=== PATIENT | male | born 1950 | race Caucasian/White ===

== ENCOUNTER 2019-08-06 03:55 | Emergency (ER) | payer OTHER ==
[~2019-08-06] VITALS: Ht 170.2 cm; Wt 81.6 kg
[~2019-08-06 03:55] MED LIST: FINA5TAB3 PO; GABA-531 PO; PROP10TA10 PO
--- NOTE | 2019-08-06 04:10 | NUR ---
Patient to ER bed 8 to gown for evaluation. Side rails up.
[2019-08-06 04:14] VITALS: BP_SYST 133
--- NOTE | 2019-08-06 04:15 | NUR ---
Pt C/O flank pain and nausea x 3 days worsening today. Pt has hx of kidney stones and states "the pain feels the same". Pt reports difficulty urinating at this time. Denies any chest pain, SOB, or any other symptoms at this time. Will continue to monitor.
[2019-08-06] MEDS ORDERED: LIP40 PO (04:22)
[2019-08-06] MEDS ORDERED: SPIR25TA PO (04:23)
[2019-08-06] MEDS ORDERED: MELO15TA13 PO (04:24)
[2019-08-06] MEDS ORDERED: GABA-531 PO (04:24)
[2019-08-06] MEDS ORDERED: HYDR25TA4 PO (04:25)
[2019-08-06] MEDS ORDERED: METO-442 PO (04:26)
--- NOTE | 2019-08-06 04:30 | NUR ---
ER Dr. Francis at bedside examining patient.
[2019-08-06] MEDS ORDERED: BUPR-120 PO (04:31)
[2019-08-06] MEDS ORDERED: AMLO5TAB4 PO (04:32)
[2019-08-06] MEDS ORDERED: XALEYE OP (04:33)
[2019-08-06] MEDS ORDERED: MORPHINE 4 MG/ML INJ. SYRINGE IVP ONE (04:45)
[2019-08-06] MEDS ORDERED: ONDANSETRON HCL 4 MG/2 ML VIAL IVP ONE (04:45)
[2019-08-06] MEDS ORDERED: NACL 0.9% 1,000 ML IV ONE (04:45)
[2019-08-06] MEDS ORDERED: CHOL100038 PO (04:47)
[2019-08-06] MEDS ORDERED: MULT-1117 (04:47)
[2019-08-06] MEDS ORDERED: FOLI-43 PO (04:49)
[2019-08-06] MEDS ORDERED: CYAN100010 PO (04:50)
[2019-08-06 05:11] LABS: BASOPHILS % (AUTO) 0.6 % (0.0-2.0); EOSINOPHILS # (AUTO) 0.1 K/uL (0.0-0.4); EOSINOPHILS % (AUTO) 1.6 % (0.0-4.0); HEMATOCRIT 41.8 % (36-54); HEMOGLOBIN 14.2 g/dL (14.0-18.0); LYMPHOCYTES # (AUTO) 0.8 K/uL (1.0-5.5); LYMPHOCYTES % (AUTO) 9.6 % (20.5-51.5); MEAN CORPUSCULAR HEMOGLOBIN 34 pg (27-31); MEAN CORPUSCULAR HGB CONC 34 % (32-36); MEAN CORPUSCULAR VOLUME 100 fL (79.0-98.0); MONOCYTES # (AUTO) 1.2 K/uL (0.0-1.0); MONOCYTES % (AUTO) 14.6 % (1.7-9.3); NEUTROPHILS # (AUTO) 5.8 K/uL (1.8-7.7); NEUTROPHILS % (AUTO) 73.6 % (40.0-70.0); PLATELET COUNT (AUTO) 218 K/uL (130-430); RED BLOOD CELL COUNT(AUTO) 4.17 MIL/uL (4.2-6.2); RED CELL DISTRIBUTION WIDTH 13.5 % (9.0-15.0); WHITE BLOOD COUNT (AUTO) 7.9 K/uL (4.8-10.8)
[2019-08-06 05:26] LABS: ANION GAP 7 (5-15); CALCIUM 9.5 mg/dL (8.4-11.0); CHLORIDE 96 mmol/L (98-107); GLUCOSE 97 mg/dL (70-99); POTASSIUM 4.3 mmol/L (3.5-5.1); SODIUM SERUM 128 mmol/L (136-145); UREA NITROGEN, BLOOD 32 mg/dL (8-21)
[2019-08-06 05:30] LABS: ALANINE AMINOTRANSFERASE 44 U/L (12-78); ALBUMIN 3.6 g/dL (3.4-4.8); ASPARTATE AMINOTRANSFERASE 41 U/L (10-37); LIPASE 664 U/L (73-393); TOTAL BILIRUBIN 1.5 mg/dL (0.0-1.0)
--- NOTE | 2019-08-06 05:42 | NUR ---
Pt is resting quietly in bed, no acute distress noted at this time. Will continue to monitor.
[2019-08-06 06:35] LABS: INR 1.1 (0.80-1.20); PROTHROMBIN TIME 10.8 SECS (9.5-12.5)
--- NOTE | 2019-08-06 07:05 | NUR ---
Patient given written and verbal discharge instructions and verbalizes understanding. ER MD discussed with patient the results and treatment provided. Patient in stable condition. ID arm band removed. IV catheter removed intact and dressing applied, no active bleeding. Patient educated on pain management and to follow up with PMD. Pain Scale 0. Opportunity for questions provided and answered. Medication side effect fact sheet provided.
[2019-08-06 07:07] VITALS: BP_SYST 129
[2019-08-06 08:16] LABS: BILIRUBIN,URINE NEGATIVE (NEGATIVE); BLOOD, URINE NEGATIVE (NEGATIVE); CLARITY/URINE CLEAR (CLEAR); COLOR,URINE YELLOW (YELLOW); GLUCOSE,URINE NEGATIVE (NEGATIVE); KETONES,URINE NEGATIVE (NEGATIVE); LEUKOCYTE ESTERASE ,URINE NEGATIVE (NEGATIVE); NITRITE, URINE NEGATIVE (NEGATIVE); PH,URINE 5.5 (5.0-8.0); PROTEIN URINE NEGATIVE (NEGATIVE)
== END 2019-08-06 07:05 | disposition home or self-care (01) ==
LOC: SED 03:55
DX: K85.90 Acute pancreatitis without necrosis or infection, unspecified (principal); E87.1 Hypo-osmolality and hyponatremia; I10 Essential (primary) hypertension
CPT/HCPCS: 36415; 80053; 81003; 82140; 83690; 85025; 85610; 96374; 96375; 99283; J2270; J2405; J7030

== ENCOUNTER 2019-08-11 08:42 | Emergency (ER) | payer OTHER ==
[~2019-08-11] VITALS: Ht 170.2 cm; Wt 81.6 kg
[~2019-08-11 08:42] MED LIST changes: +AMLO5TAB4 PO; +BUPR-120 PO; +CHOL100038 PO; +CYAN100010 PO; +FOLI-43 PO; +HYDR25TA4 PO; +LIP40 PO; +MELO15TA13 PO; +METO-442 PO; +MULT-1117; +SPIR25TA PO; +XALEYE OP
[2019-08-11 08:54] VITALS: BP_SYST 128
--- NOTE | 2019-08-11 09:30 | NUR ---
Patient to ER bed 8 to gown for evaluation. Side rails up.
--- NOTE | 2019-08-11 09:35 | NUR ---
Pt presents to ED c/o dustented abd and low back pain.Pt seen on Sunday for back pain.Pt reports abd more distented from Liver Cirrhosis.
--- NOTE | 2019-08-11 10:50 | NUR ---
Dr. Snyder at bedside to explain results.
--- NOTE | 2019-08-11 10:53 | NUR ---
Jaye baker in [facility] - 08/11/19 at 1055 by MINERVA P
--- NOTE | 2019-08-11 11:05 | NUR ---
Dr. Snyder at bedside for procedure.
--- NOTE | 2019-08-11 11:27 | NUR ---
Pt tolerating paracentisis well.
--- NOTE | 2019-08-11 12:01 | NUR ---
4th bottle started.
[2019-08-11 12:12] VITALS: BP_SYST 126
--- NOTE | 2019-08-11 12:15 | NUR ---
150 ml of 5th bottle removed. Total 4150ml removed.
--- NOTE | 2019-08-11 12:22 | NUR ---
Patient given written and verbal discharge instructions and verbalizes understanding. ER MD discussed with patient the results and treatment provided. Patient in stable condition. ID arm band removed. no Rx given. Patient educated on pain management and to follow up with PMD. Pain Scale 0. Opportunity for questions provided and answered. Medication side effect fact sheet provided.
== END 2019-08-11 12:12 | disposition home or self-care (01) ==
LOC: SED 08:42
DX: R18.8 Other ascites (principal); I10 Essential (primary) hypertension; Z79.899 Other long term (current) drug therapy
CPT/HCPCS: 49083; 74018; 99285